=== PATIENT | male | born 1985 | race Caucasian/White ===

== ENCOUNTER 2018-06-14 16:36 | Inpatient (IN) | payer OTHER ==
[2018-06-14 17:14] VITALS: BMI 25.7
--- NOTE | 2018-06-14 20:46 | HP ---
COWS - Scale Resting Pulse: 1= DE 81-100 Sweatin=Flushed/Facial Moisture Restless Observation: 0= Sits Still Pupil Size: 0= Normal to Room Light Bone or Joint Aches: 4=Acute Joint/Muscle Pain Runny Nose/ Eye Tearin= Nasal Congestion GI Upset > 30mins: 1= Stomach Cramp Tremor Observation: 2= Slight Tremor Visible Yawning Observation: 0= None Anxiety or Irritability: 4=Extreme Anxiety Goose Flesh Skin: 0=Smooth Skin COWS Score: 15 CIWA Score - Admission Criteria [facility]ASAS Guidelines: Admission for Medically Managed Detox: Requires at least one of the followin. CIWA greater than 12 2. Seizures within the past 24 hours 3. Delirium tremens within the past 24 hours 4. Hallucinations within the past 24 hours 5. Acute intervention needed for co occurring medical disorder 6. Acute intervention needed for co occurring psychiatric disorder 7. Severe withdrawal that cannot be handled at a lower level of care (continued vomiting, continued diarrhea, abnormal vital signs) requiring intravenous medication and/or fluids 8. Admission ROS [facility] Chief Complaint: Suboxone withdrawal symptoms Allergies/Adverse Reactions: Allergies Allergy/AdvReac Type Severity Reaction Status Date / Time lactose AdvReac Mild Verified 06/14/18 17:57 History of Present Illness: 32 years old male with 2 years history of buprenorphine dependence is seeking admission to detox. Patient reports that that he was on buprenorphine therapy 3 months ago and has been buying it from the street recently. He reports that he used buprenorphine 4 days ago and he is on court mandated probation. He was called by Renate from [facility] who works with his third officer to come in today. He has a history of depression and anxiety. He reports insignificant period of abstinence and a history of suicide attempt by overdose and cutting his wrist in 2016. Patient denies suicidal ideation at this time. This is his first admission to [facility]. Exam Limitations: No Limitations - Ebola screening Have you traveled outside of the country in the last 21 days: No Have you had contact with anyone from an Ebola affected area: No Have you been sick,other than usual withdrawal symptoms: No - Review of Systems Constitutional: Chills, Loss of Appetite, Malaise, Night Sweats, Changes in sleep EENT: reports: Nose Congestion Respiratory: reports: No Symptoms reported Cardiac: reports: No Symptoms Reported GI: reports: Poor Appetite, Poor Fluid Intake, Abdominal cramping : reports: No Symptoms Reported Musculoskeletal: reports: Back Pain, Joint Pain, Muscle Weakness Integumentary: reports: Dryness, Flushing Neuro: reports: Headache Endocrine: reports: No Symptoms Reported Hematology: reports: No Symptoms Reported Psychiatric: reports: Mood/Affect Appropiate, Orientated x3, Anxious, Depressed Other Systems: Reviewed and Negative Patient History - Patient Medical History Hx Anemia: No Hx Asthma: No Hx Chronic Obstructive Pulmonary Disease (COPD): No Hx Cancer: No Hx Cardiac Disorders: No Hx Congestive Heart Failure: No Hx Hypertension: No Hx Hypercholesterolemia: No Hx Pacemaker: No HX Cerebrovascular Accident: No Hx Seizures: No Hx Dementia: No Hx Diabetes: No Hx Gastrointestinal Disorders: No Hx Liver Disease: No Hx Genitourinary Disorders: No Hx Sexually Transmitted Disorders: No Hx Renal Disease (ESRD): No Hx Thyroid Disease: No Hx Human Immunodeficiency Virus (HIV): No (NEGATIVE MARCH 2018) Hx Hepatitis C: No Hx Depression: Yes (NOT ON MEDICATION) Hx Suicide Attempt: Yes (04/2016 - [facility] DENIES SUICIDAL IDEATION AT THIS TIME) Hx Bipolar Disorder: No Hx Schizophrenia: No Other Medical History: ANXIETY - NOT ON MEDICATION - Patient Surgical History Past Surgical History: No Hx Neurologic Surgery: No Hx Cataract Extraction: No Hx Cardiac Surgery: No Hx Lung Surgery: No Hx Abdominal Surgery: No Hx Appendectomy: No Hx Cholecystectomy: No Hx Genitourinary Surgery: No Hx Orthopedic Surgery: No Anesthesia Reaction: No - PPD History Previous Implant?: No (PPD POSITIVE. NOT TREATED) Documented Results: Positive w/o proof Implanted On Prior [facility] Admission?: No Results: pos PPD to be Administered?: No - Reproductive History Patient is a Female of Child Bearing Age (11 -55 yrs old): No - Smoking Cessation Smoking history: Current every day smoker Have you smoked in the past 12 months: Yes Aproximately how many cigarettes per day: 15 Hx Chewing Tobacco Use: No Initiated information on smoking cessation: Yes 'Breaking Loose' booklet given: 06/14/18 - Substance & Tx. History Hx Alcohol Use: No Hx Substance Use: Yes Substance Use Type: Marijuana, Opiates Hx Substance Use Treatment: Yes ([facility]) - Substances Abused Buprenorphine Route: Oral Frequency: Daily Amount used: 4mg film- cuts 8mg film in half. Age of first use: 30 Date of Last Use: 06/12/18 Marijuana/Hashish Route: Smoking Frequency: Daily Amount used: $20 Age of first use: 15 Date of Last Use: 06/14/18 Family Disease History - Family Disease History Family Disease History: Other: Father (incarcerated, heroin user, schizo), Mother (living, healthy), Brother (two - healthy), Sister (five - healthy), Daughter (one, age 9, healthy) Admission Physical Exam [facility] - Vital Signs Vital Signs: Vital Signs - 24 hr 06/14/18 17:08 Temperature 98 F Pulse Rate 90 Respiratory 18 Rate Blood Pressure 117/67 - Physical General Appearance: Yes: Moderate Distress, Irritable, Sweating, Anxious HEENTM: Yes: EOMI, Normal Voice, HANH, Nasal Congestion Respiratory: Yes: Lungs Clear, Normal Breath Sounds, No Respiratory Distress Neck: Yes: Supple Breast: Yes: Breast Exam Deferred Cardiology: Yes: Regular Rhythm, Regular Rate Abdominal: Yes: Normal Bowel Sounds, Soft Genitourinary: Yes: Within Normal Limits Back: Yes: Normal Inspection Musculoskeletal: Yes: Back pain, Muscle Pain, Muscle weakness Extremities: Yes: Normal Inspection Neurological: Yes: engineer conductor II-XII NML intact, Alert, Normal Mood/Affect Integumentary: Yes: Warm Lymphatic: Yes: Within Normal Limits - Diagnostic (1) Buprenorphine dependence Current Visit: Yes Status: Chronic (2) Cannabis dependence, uncomplicated Current Visit: Yes Status: Chronic (3) Anxiety Current Visit: Yes Status: Chronic (4) Depression Current Visit: Yes Status: Chronic Qualifiers: Depression Type: unspecified Qualified Code(s): F32.9 - Major depressive disorder, single episode, unspecified Comment: history of suicide - encourage f/u with psych - states he has not time right now but if he feels bad he will (5) Nicotine dependence Current Visit: Yes Status: Chronic Qualifiers: Nicotine product type: cigarettes Substance use status: uncomplicated Qualified Code(s): F17.210 - Nicotine dependence, cigarettes, uncomplicated (6) Uncomplicated opioid dependence Current Visit: Yes Status: Chronic Comment: start suboxone 8mg daily, attend NEw Focus groups Cleared for Admission [facility] - Detox or Rehab [facility] Level of Care: Medically Managed Detox Regimen/Protocol: Methadone [facility] Breath Alcohol Content Breath Alcohol Content: 0 Urine Drug Screen - Results Drug Screen Negative: No Urine Drug Screen Results: THC-Marijuana, BZO-Benzodiazepines, BUP-Suboxone
[2018-06-14] MEDS ORDERED: MENTHOL/PHENOL 1 EACH UD MM PRN (20:58)
[2018-06-14] MEDS ORDERED: P-EPHED 60MG/TRIPROLIDI 2.5MG TABLET PO PRN (20:58)
[2018-06-14] MEDS ORDERED: MAGNESIUM CITRATE 300 ML BOTTLE PO PRN (20:58)
[2018-06-14] MEDS ORDERED: METHADONE HCL 10 MG TABLET (FOR DETOX USE ONLY) PO ONE ×2 (20:58→23:00)
[2018-06-14] MEDS ORDERED: MAGNESIUM HYDROX 2400MG/30ML ORAL SUSPENSION 30 ML CUP PO PRN (20:58)
[2018-06-14] MEDS ORDERED: ACETAMINOPHEN 325 MG TABLET (FP) PO PRN (20:58)
[2018-06-14] MEDS ORDERED: guaiFENesin/D-METHORPHAN HB 10 ML UNIT-DOSE CUPS PO PRN (20:58)
[2018-06-14] MEDS ORDERED: MAG HYDROX/AL HYDROX/SIMETH 30 ML UNIT-DOSE CUP PO PRN (20:58)
[2018-06-14] MEDS ORDERED: LOPERAMIDE HCL 2 MG CAPSULE PO PRN (20:58)
[2018-06-14] MEDS ORDERED: IBUPROFEN 400 MG TABLET (FP) PO PRN (20:58)
[2018-06-14] MEDS ORDERED: NICOTINE POLACRILEX 2 MG GUM BC PRN (20:58)
[2018-06-14] MEDS: THIAMINE HCL 100 MG TABLET (FP) PO SCH (21:44)
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
[2018-06-15] MEDS ORDERED: METHADONE HCL 10 MG TABLET (FOR DETOX USE ONLY) PO ONE (10:00)
[2018-06-15] MEDS: NICOTINE 21 MG/24 HOURS TOPICAL PATCH TD SCH (10:08)
[2018-06-15] MEDS: PRENATAL VITAMINS W/ FOLIC ACID TABLET (FP) PO SCH (10:08)
[2018-06-15 10:10] LABS: ALBUMIN 3.3 g/dl (3.4-5.0); ALK PHOS 72 U/L (45-117); ANION GAP 6 MMOL/L (8-16); BILIRUBIN,TOTAL 0.2 mg/dL (0.2-1); BLOOD UREA NITROGEN 18 mg/dL (7-18); CALCIUM 7.9 mg/dL (8.5-10.1); CHLORIDE 107 mmol/L (98-107); CO2 28 mmol/L (21-32); CREATININE 0.8 mg/dL (0.55-1.3); GLUCOSE,RANDOM 98 mg/dL (74-106); POTASSIUM 3.8 mmol/L (3.5-5.1); SGOT/AST 10 U/L (15-37); SGPT/ALT 15 U/L (13-61); SODIUM 141 mmol/L (136-145); TOT PROT 6.3 g/dl (6.4-8.2)
[2018-06-15 10:11] LABS: HEMATOCRIT 40.7 % (35.4-49); HEMOGLOBIN 14.1 GM/dL (11.7-16.9); MCH 31.6 pg (25.7-33.7); MCHC 34.6 g/dl (32.0-35.9); MEAN CELL VOLUME 91.3 fl (80-96); PLATELET COUNT 249 K/MM3 (134-434); RBC 4.46 M/mm3 (4.00-5.60); RDW 12.9 % (11.9-15.9); WHITE BLOOD COUNT 6.1 K/mm3 (4.0-10.0)
--- NOTE | 2018-06-15 14:03 | PN ---
BHS COWS - Scale Resting Pulse: 0= [place] 80 or Below Sweatin= Chills/Flushing Restless Observation: 0= Sits Still Pupil Size: 0= Normal to Room Light Bone or Joint Aches: 2= Severe Diffuse Aches Runny Nose/ Eye Tearin= None GI Upset > 30mins: 2= Nausea/Diarrhea Tremor Observation of Outstretched Hands: 0= None Yawning Observation: 1= 1-2x During Session Anxiety or Irritability: 2=Irritable/Anxious Goose Flesh Skin: 3=Piloerection COWS Score: 11 S Progress Note (SOAP) Subjective: Nausea, H/A, Diarrhea, Body Aches. Objective: PATIENT A & O X 3. IN NO ACUTE DISTRESS. 06/15/18 14:00 Vital Signs Temperature 97.3 F L 06/15/18 09:10 Pulse Rate 71 06/15/18 09:10 Respiratory Rate 18 06/15/18 09:10 Blood Pressure 97/52 L 06/15/18 09:10 O2 Sat by Pulse Oximetry (%) Laboratory Tests 06/15/18 06/15/18 06/15/18 07:00 07:00 07:00 WBC 6.1 RBC 4.46 Hgb 14.1 Hct 40.7 MCV 91.3 MCH 31.6 MCHC 34.6 RDW 12.9 Plt Count 249 MPV 8.0 Sodium 141 Potassium 3.8 Chloride 107 Carbon Dioxide 28 Anion Gap 6 L BUN 18 Creatinine 0.8 Creat Clearance w eGFR > 60 Random Glucose 98 Calcium 7.9 L Total Bilirubin 0.2 AST 10 L ALT 15 Alkaline Phosphatase 72 Total Protein 6.3 L Albumin 3.3 L RPR Titer HIV 1&2 Antibody Screen Negative HIV P24 Antigen Negative 06/15/18 07:00 WBC RBC Hgb Hct MCV MCH MCHC RDW Plt Count MPV Sodium Potassium Chloride Carbon Dioxide Anion Gap BUN Creatinine Creat Clearance w eGFR Random Glucose Calcium Total Bilirubin AST ALT Alkaline Phosphatase Total Protein Albumin RPR Titer Nonreactive HIV 1&2 Antibody Screen HIV P24 Antigen LABS NOTED. Assessment: 06/15/18 14:01 WITHDRAWAL SYMPTOMS. Plan: CONTINUE DETOX. INCREASE DAILY PO FLUID INTAKE. PRN IMMODIUM PO FOR DIARRHEA.
[2018-06-15] MEDS: THIAMINE HCL 100 MG TABLET (FP) PO SCH (23:33)
[2018-06-16] MEDS ORDERED: METHADONE HCL 5 MG TABLET (FOR DETOX USE ONLY) PO ONE (10:00)
[2018-06-16] MEDS: NICOTINE 21 MG/24 HOURS TOPICAL PATCH TD SCH (11:00)
[2018-06-16] MEDS: PRENATAL VITAMINS W/ FOLIC ACID TABLET (FP) PO SCH (11:00)
--- NOTE | 2018-06-16 12:32 | PN ---
BHS COWS - Scale Resting Pulse: 0= AL 80 or Below Sweatin=Flushed/Facial Moisture Restless Observation: 0= Sits Still Pupil Size: 0= Normal to Room Light Bone or Joint Aches: 2= Severe Diffuse Aches Runny Nose/ Eye Tearin= Nasal Congestion GI Upset > 30mins: 0= None Tremor Observation of Outstretched Hands: 2= Slight Tremor Visible Yawning Observation: 2= >3x During Session Anxiety or Irritability: 2=Irritable/Anxious Goose Flesh Skin: 0=Smooth Skin COWS Score: 11 BHS Progress Note (SOAP) Subjective: irritable agitation anxiety interrupted sleep Objective: 06/16/18 12:31 Vital Signs Temperature 98.2 F 06/16/18 09:19 Pulse Rate 69 06/16/18 09:19 Respiratory Rate 18 06/16/18 09:19 Blood Pressure 133/68 06/16/18 09:19 O2 Sat by Pulse Oximetry (%) Laboratory Tests 06/15/18 06/15/18 06/15/18 07:00 07:00 07:00 WBC 6.1 RBC 4.46 Hgb 14.1 Hct 40.7 MCV 91.3 MCH 31.6 MCHC 34.6 RDW 12.9 Plt Count 249 MPV 8.0 Sodium 141 Potassium 3.8 Chloride 107 Carbon Dioxide 28 Anion Gap 6 L BUN 18 Creatinine 0.8 Creat Clearance w eGFR > 60 Random Glucose 98 Calcium 7.9 L Total Bilirubin 0.2 AST 10 L ALT 15 Alkaline Phosphatase 72 Total Protein 6.3 L Albumin 3.3 L RPR Titer HIV 1&2 Antibody Screen Negative HIV P24 Antigen Negative 06/15/18 07:00 WBC RBC Hgb Hct MCV MCH MCHC RDW Plt Count MPV Sodium Potassium Chloride Carbon Dioxide Anion Gap BUN Creatinine Creat Clearance w eGFR Random Glucose Calcium Total Bilirubin AST ALT Alkaline Phosphatase Total Protein Albumin RPR Titer Nonreactive HIV 1&2 Antibody Screen HIV P24 Antigen aaox3 ambulating no acute distress Assessment: 06/16/18 12:32 withdrawal sx Plan: continue detox increase fluids
[2018-06-16] MEDS: THIAMINE HCL 100 MG TABLET (FP) PO SCH (22:39)
[2018-06-16] MEDS: diazePAM 5 MG TABLET PO PRN (22:40)
[2018-06-17] MEDS ORDERED: METHADONE HCL 5 MG TABLET (FOR DETOX USE ONLY) PO ONE (10:00)
[2018-06-17] MEDS: PRENATAL VITAMINS W/ FOLIC ACID TABLET (FP) PO SCH (11:06)
[2018-06-17] MEDS: diazePAM 5 MG TABLET PO PRN ×2 (11:06→23:09)
[2018-06-17] MEDS: NICOTINE 21 MG/24 HOURS TOPICAL PATCH TD SCH (11:06)
--- NOTE | 2018-06-17 12:50 | PN ---
BHS Progress Note (SOAP) Subjective: Tremors, sweats, nausea without vomiting and anxiety Objective: 06/17/18 12:47 Vital Signs 06/17/18 06/17/18 06/17/18 06:00 06:21 09:44 Temperature 97.9 F 98.9 F Pulse Rate 61 59 L Respiratory 18 18 18 Rate Blood Pressure 105/52 L 113/55 L Laboratory Last Values WBC 6.1 K/mm3 (4.0-10.0) 06/15/18 07:00 RBC 4.46 M/mm3 (4.00-5.60) 06/15/18 07:00 Hgb 14.1 GM/dL (11.7-16.9) 06/15/18 07:00 Hct 40.7 % (35.4-49) 06/15/18 07:00 MCV 91.3 fl (80-96) 06/15/18 07:00 MCH 31.6 pg (25.7-33.7) 06/15/18 07:00 MCHC 34.6 g/dl (32.0-35.9) 06/15/18 07:00 RDW 12.9 % (11.9-15.9) 06/15/18 07:00 Plt Count 249 K/MM3 (134-434) 06/15/18 07:00 MPV 8.0 fl (7.5-11.1) 06/15/18 07:00 Sodium 141 mmol/L (136-145) 06/15/18 07:00 Potassium 3.8 mmol/L (3.5-5.1) 06/15/18 07:00 Chloride 107 mmol/L (98-107) 06/15/18 07:00 Carbon Dioxide 28 mmol/L (21-32) 06/15/18 07:00 Anion Gap 6 MMOL/L (8-16) L 06/15/18 07:00 BUN 18 mg/dL (7-18) 06/15/18 07:00 Creatinine 0.8 mg/dL (0.55-1.3) 06/15/18 07:00 Creat Clearance w eGFR > 60 (>60) 06/15/18 07:00 Random Glucose 98 mg/dL (74-106) 06/15/18 07:00 Calcium 7.9 mg/dL (8.5-10.1) L 06/15/18 07:00 Total Bilirubin 0.2 mg/dL (0.2-1) 06/15/18 07:00 AST 10 U/L (15-37) L 06/15/18 07:00 ALT 15 U/L (13-61) 06/15/18 07:00 Alkaline Phosphatase 72 U/L (45-117) 06/15/18 07:00 Total Protein 6.3 g/dl (6.4-8.2) L 06/15/18 07:00 Albumin 3.3 g/dl (3.4-5.0) L 06/15/18 07:00 RPR Titer Nonreactive (NONREACTIVE) 06/15/18 07:00 HIV 1&2 Antibody Screen Negative 06/15/18 07:00 HIV P24 Antigen Negative 06/15/18 07:00 Labs noted-no panic values Assessment: 06/17/18 12:48 Withdrawal sx Plan: Continue detox
[2018-06-17] MEDS: THIAMINE HCL 100 MG TABLET (FP) PO SCH (23:10)
[2018-06-18] MEDS ORDERED: METHADONE HCL 10 MG TABLET (FOR DETOX USE ONLY) PO ONE ×2 (10:00→13:45)
[2018-06-18] MEDS: NICOTINE 21 MG/24 HOURS TOPICAL PATCH TD SCH (10:11)
[2018-06-18] MEDS: PRENATAL VITAMINS W/ FOLIC ACID TABLET (FP) PO SCH (10:11)
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
--- NOTE | 2018-06-18 15:42 | PN ---
BHS Progress Note (SOAP) Subjective: Sweating, chills, tremor, nausea, interrupted sleep. As per chart review, patient reported SA 04/2016. As per RN, patient has positive suicide risk scale. Psychiatrist consulted and patient placed on one to one observation for safety. As per RN, patient told Psychiatrist that he wants to jump out of the window so that he can go home. Objective: 06/18/18 15:38 Last Vital Signs Temp Pulse Resp BP Pulse Ox 97.9 F 71 18 140/77 06/18/18 14:27 06/18/18 14:27 06/18/18 14:27 06/18/18 14:27 Laboratory Tests 06/15/18 06/15/18 06/15/18 07:00 07:00 07:00 WBC 6.1 RBC 4.46 Hgb 14.1 Hct 40.7 MCV 91.3 MCH 31.6 MCHC 34.6 RDW 12.9 Plt Count 249 MPV 8.0 Sodium 141 Potassium 3.8 Chloride 107 Carbon Dioxide 28 Anion Gap 6 L BUN 18 Creatinine 0.8 Creat Clearance w eGFR > 60 Random Glucose 98 Calcium 7.9 L Total Bilirubin 0.2 AST 10 L ALT 15 Alkaline Phosphatase 72 Total Protein 6.3 L Albumin 3.3 L RPR Titer HIV 1&2 Antibody Screen Negative HIV P24 Antigen Negative 06/15/18 07:00 WBC RBC Hgb Hct MCV MCH MCHC RDW Plt Count MPV Sodium Potassium Chloride Carbon Dioxide Anion Gap BUN Creatinine Creat Clearance w eGFR Random Glucose Calcium Total Bilirubin AST ALT Alkaline Phosphatase Total Protein Albumin RPR Titer Nonreactive HIV 1&2 Antibody Screen HIV P24 Antigen Labs reviewed: calcium 7.9 Assessment: 06/18/18 15:39 Withdrawal symptoms Noted with hypocalcemia Plan: Continue detox Encouraged PO water hydration Hypocalcemia: start calcium carbonate 650mg PO bid x 5 days Continue 1:1 observation as per psychiatrist Methadone 10mg PO x 1 dose ordered as patient initially refused his AM dose and requested it later
[2018-06-18] MEDS: THIAMINE HCL 100 MG TABLET (FP) PO SCH (22:48)
[2018-06-18] MEDS: MELATONIN 5 MG TABLETS PO PRN (22:48)
[2018-06-18] MEDS: CALCIUM CARBONATE 650 MG TABLET PO SCH (22:49)
[2018-06-19] MEDS ORDERED: METHADONE HCL 5 MG TABLET (FOR DETOX USE ONLY) PO ONE (06:00)
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
[2018-06-19] MEDS: CALCIUM CARBONATE 650 MG TABLET PO SCH ×2 (09:52→22:08)
[2018-06-19] MEDS: PRENATAL VITAMINS W/ FOLIC ACID TABLET (FP) PO SCH (09:53)
[2018-06-19] MEDS: NICOTINE 21 MG/24 HOURS TOPICAL PATCH TD SCH (09:54)
--- NOTE | 2018-06-19 14:41 | DS ---
[facility] Detox Discharge Summary Admission Date: 06/14/18 Discharge Date: 06/19/18 - History Present History: Cannabis Dependence, Opioid Dependence Additional Comments: PATIENT GOING TO [facility] ([place], [place]) FOR AFTERCARE. PRIOR TO DISCHARGE FROM DETOX UNIT, PATIENT DENIES SI / HI AND HE DENIES CAH. PRIOR TO DISCHARGE, PATIENT WAS EVALUATED BY PSYCHIATRIST DR. ZHANG, WHO THEN D/C'S 1:1 CONTINUOUS OBSERVATION STATUS (FOR SAFETY). PATIENT WAS DISCHARGED FROM DETOX UNIT IN STABLE MEDICAL CONDITION. Pertinent Past History: Major Depressive Disorder, Borderline personality disorder, Nicotine Dependence , Anxiety, Hypocalcemia, Mood Disorder, History of Positive PPD. - Physical Exam Results Vital Signs: Vital Signs Temperature 96.8 F L 06/19/18 13:21 Pulse Rate 62 06/19/18 13:21 Respiratory Rate 16 06/19/18 13:21 Blood Pressure 117/77 06/19/18 13:21 O2 Sat by Pulse Oximetry (%) Pertinent Admission Physical Exam Findings: WITHDRAWAL SYMPTOMS. Laboratory Tests 06/15/18 06/15/18 06/15/18 07:00 07:00 07:00 WBC 6.1 RBC 4.46 Hgb 14.1 Hct 40.7 MCV 91.3 MCH 31.6 MCHC 34.6 RDW 12.9 Plt Count 249 MPV 8.0 Sodium 141 Potassium 3.8 Chloride 107 Carbon Dioxide 28 Anion Gap 6 L BUN 18 Creatinine 0.8 Creat Clearance w eGFR > 60 Random Glucose 98 Calcium 7.9 L Total Bilirubin 0.2 AST 10 L ALT 15 Alkaline Phosphatase 72 Total Protein 6.3 L Albumin 3.3 L RPR Titer HIV 1&2 Antibody Screen Negative HIV P24 Antigen Negative 06/15/18 07:00 WBC RBC Hgb Hct MCV MCH MCHC RDW Plt Count MPV Sodium Potassium Chloride Carbon Dioxide Anion Gap BUN Creatinine Creat Clearance w eGFR Random Glucose Calcium Total Bilirubin AST ALT Alkaline Phosphatase Total Protein Albumin RPR Titer Nonreactive HIV 1&2 Antibody Screen HIV P24 Antigen LABS NOTED. - Treatment Hospital Course: Detox Protocol Followed, Detoxed Safely, Responded well, Discharged Condition Good, Rehab Referral Accepted Patient has Accepted a Rehab Referral to: [facility] ([place], [place]). - Medication Discharge Medications: Ambulatory Orders Bupropion HCl [Wellbutrin Xl -] 300 mg PO DAILY #30 tab.sr.24h 06/19/18 - Diagnosis (1) Hypocalcemia Current Visit: Yes Status: Acute (2) Uncomplicated opioid dependence Current Visit: Yes Status: Acute (3) Cannabis dependence Current Visit: Yes Status: Chronic (4) MDD (major depressive disorder), recurrent episode Current Visit: Yes Status: Chronic Qualifiers: Major depression episode severity: unspecified Qualified Code(s): F33.9 - Major depressive disorder, recurrent, unspecified (5) Mood disorder Current Visit: Yes Status: Chronic (6) Nicotine dependence Current Visit: Yes Status: Chronic Qualifiers: Nicotine product type: cigarettes Substance use status: uncomplicated Qualified Code(s): F17.210 - Nicotine dependence, cigarettes, uncomplicated (7) PPD positive Current Visit: Yes Status: Chronic (8) Borderline personality disorder Current Visit: Yes Status: Ruled-out (9) Buprenorphine dependence Current Visit: Yes Status: Acute (10) Anxiety Current Visit: Yes Status: Chronic (11) Depression Current Visit: Yes Status: Chronic Qualifiers: Depression Type: major depressive disorder Major depression recurrence: unspecified whether recurrent Active/Remission status: remission status unspecified Qualified Code(s): F32.9 - Major depressive disorder, single episode, unspecified - AMA Did Patient Leave Against Medical Advice: No
[2018-06-19] MEDS ORDERED: hydrOXYzine PAMOATE 50 MG CAPSULE (FP) PO ONE (15:10)
--- NOTE | 2018-06-19 17:10 | PN ---
[facility] Progress Note (SOAP) Subjective: Patient Initially Scheduled to go to [facility] ( [place], [place]) for aftercare. However, Patient's Counselor was later informed that Bed is currently unavailable at [facility]. For Safety Reasons, Patient to Remain on Detox Unit until tomorrow Pending Determination of alternate Aftercare Plan. Patient Reports Anxiety. Denies any other Withdrawal / Detox Symptoms at this Time. Objective: PATIENT A & O X 3, OBSERVED AMBULATING ON UNIT. IN NO ACUTE DISTRESS. PATIENT DENIES SI / HI. PATIENT DENIES CAH. 06/19/18 17:07 Vital Signs Temperature 96.8 F L 06/19/18 13:21 Pulse Rate 62 06/19/18 13:21 Respiratory Rate 16 06/19/18 13:21 Blood Pressure 117/77 06/19/18 13:21 O2 Sat by Pulse Oximetry (%) Laboratory Tests 06/15/18 06/15/18 06/15/18 07:00 07:00 07:00 WBC 6.1 RBC 4.46 Hgb 14.1 Hct 40.7 MCV 91.3 MCH 31.6 MCHC 34.6 RDW 12.9 Plt Count 249 MPV 8.0 Sodium 141 Potassium 3.8 Chloride 107 Carbon Dioxide 28 Anion Gap 6 L BUN 18 Creatinine 0.8 Creat Clearance w eGFR > 60 Random Glucose 98 Calcium 7.9 L Total Bilirubin 0.2 AST 10 L ALT 15 Alkaline Phosphatase 72 Total Protein 6.3 L Albumin 3.3 L RPR Titer HIV 1&2 Antibody Screen Negative HIV P24 Antigen Negative 06/15/18 07:00 WBC RBC Hgb Hct MCV MCH MCHC RDW Plt Count MPV Sodium Potassium Chloride Carbon Dioxide Anion Gap BUN Creatinine Creat Clearance w eGFR Random Glucose Calcium Total Bilirubin AST ALT Alkaline Phosphatase Total Protein Albumin RPR Titer Nonreactive HIV 1&2 Antibody Screen HIV P24 Antigen LABS NOTED. 06/19/18 17:08 06/19/18 17:10 Assessment: 06/19/18 17:08 DETOX REGIMEN COMPLETED,; HOWEVER PATIENT TO REMAIN ON DETOX UNIT UNTIL TOMORROW FOR SAFETY REASONS AND SO THAT ALTERNATE AFTERCARE PLAN CAN BE ARRANGED. SEE ABOVE. Plan: DISCHARGE POSTPONED UNTIL TOMORROW PENDING ARRANGEMENT OF ALTERNATE AFTERCARE PLAN.
[2018-06-19] MEDS: MELATONIN 5 MG TABLETS PO PRN (22:08)
[2018-06-19] MEDS: THIAMINE HCL 100 MG TABLET (FP) PO SCH (22:08)
[2018-06-20 06:14] VITALS: BP 108/66; PULSE 70; TEMP 97.2
--- NOTE | 2018-06-20 06:59 | PN ---
[facility] Progress Note Note: Patient was on 1:1 for suicidal ideation which was discontinued by Dr. Trujillo. As per Mr. José Miguel Kitchen FIRE EXTINGU[employer]ER TESTER, patient was scheduled to be discharged to [facility]. pending availability of a bed. Patient walked out of the unit twice this morning and was acting abnormally. Patient is being transferred to [facility] for psych. evaluation Last Vital Signs Temp Pulse Resp BP Pulse Ox 97.2 F L 70 18 108/66 06/20/18 06:14 06/20/18 06:14 06/20/18 06:14 06/20/18 06:14 Laboratory Last Values WBC 6.1 K/mm3 (4.0-10.0) 06/15/18 07:00 RBC 4.46 M/mm3 (4.00-5.60) 06/15/18 07:00 Hgb 14.1 GM/dL (11.7-16.9) 06/15/18 07:00 Hct 40.7 % (35.4-49) 06/15/18 07:00 MCV 91.3 fl (80-96) 06/15/18 07:00 MCH 31.6 pg (25.7-33.7) 06/15/18 07:00 MCHC 34.6 g/dl (32.0-35.9) 06/15/18 07:00 RDW 12.9 % (11.9-15.9) 06/15/18 07:00 Plt Count 249 K/MM3 (134-434) 06/15/18 07:00 MPV 8.0 fl (7.5-11.1) 06/15/18 07:00 Sodium 141 mmol/L (136-145) 06/15/18 07:00 Potassium 3.8 mmol/L (3.5-5.1) 06/15/18 07:00 Chloride 107 mmol/L (98-107) 06/15/18 07:00 Carbon Dioxide 28 mmol/L (21-32) 06/15/18 07:00 Anion Gap 6 MMOL/L (8-16) L 06/15/18 07:00 BUN 18 mg/dL (7-18) 06/15/18 07:00 Creatinine 0.8 mg/dL (0.55-1.3) 06/15/18 07:00 Creat Clearance w eGFR > 60 (>60) 06/15/18 07:00 Random Glucose 98 mg/dL (74-106) 06/15/18 07:00 Calcium 7.9 mg/dL (8.5-10.1) L 06/15/18 07:00 Total Bilirubin 0.2 mg/dL (0.2-1) 06/15/18 07:00 AST 10 U/L (15-37) L 06/15/18 07:00 ALT 15 U/L (13-61) 06/15/18 07:00 Alkaline Phosphatase 72 U/L (45-117) 06/15/18 07:00 Total Protein 6.3 g/dl (6.4-8.2) L 06/15/18 07:00 Albumin 3.3 g/dl (3.4-5.0) L 06/15/18 07:00 RPR Titer Nonreactive (NONREACTIVE) 06/15/18 07:00 HIV 1&2 Antibody Screen Negative 06/15/18 07:00 HIV P24 Antigen Negative 06/15/18 07:00
--- NOTE | 2018-06-20 08:31 | DS ---
[facility] Detox Discharge Summary Admission Date: 06/14/18 Discharge Date: 06/20/18 (sent to [facility]) - History Present History: Opioid Dependence - Physical Exam Results Vital Signs: Vital Signs Temperature 97.2 F L 06/20/18 06:14 Pulse Rate 70 06/20/18 06:14 Respiratory Rate 18 06/20/18 06:14 Blood Pressure 108/66 06/20/18 06:14 O2 Sat by Pulse Oximetry (%) - Medication Discharge Medications: Ambulatory Orders Bupropion HCl [Wellbutrin Xl -] 300 mg PO DAILY #30 tab.sr.24h 06/19/18 - AMA Did Patient Leave Against Medical Advice: No (pt sent to [facility] for evaluation/or admission)
== END 2018-06-20 07:15 | DRG 773 ==
LOC: YASAS 16:36 → Y6N 19:14
PROVIDERS: ADMIT Neuromusculoskeletal Medicine & OMM; ATTEND Neuromusculoskeletal Medicine & OMM
PROC: HZ2ZZZZ Detoxification Services for Substance Abuse Treatment (ICD-10-PCS; principal; 2018-06-14)
DX: F11.23 Opioid dependence with withdrawal (principal); F12.20 Cannabis dependence, uncomplicated; F17.210 Nicotine dependence, cigarettes, uncomplicated; F33.9 Major depressive disorder, recurrent, unspecified; F39 Unspecified mood [affective] disorder; F60.3 Borderline personality disorder; F41.9 Anxiety disorder, unspecified; E83.51 Hypocalcemia; R76.11 Nonspecific reaction to tuberculin skin test without active tuberculosis; Z91.5 Personal history of self-harm
CPT/HCPCS: 36415; 71046-TC-FY; 80053; 85027; 86593; 87389